=== PATIENT | female | born 1965 | race Caucasian/White ===

== ENCOUNTER 2017-07-29 17:59 | Observation (INO) | payer OTHER ==
[2017-07-29 18:17] VITALS: BMI 28.5
[2017-07-29] MEDS ORDERED: Sodium Chloride 0.9% 1,000 ML IV ONE (19:13)
[2017-07-29] MEDS ORDERED: Iohexol 240 (50 ml) PO STA (19:13)
[2017-07-29] MEDS ORDERED: Iohexol 240 (50 ml) ONE (19:31)
[2017-07-29 19:34] LABS: BASO # 0.1 K/uL (0.0-0.2); BASO % 0.5 % (0.0-2.0); EOS # 0.1 K/uL (0.0-0.7); EOS % 0.3 % (0.0-4.0); HEMATOCRIT 48.3 % (34.0-47.0); LYMPH # 1.2 K/uL (1.0-4.3); LYMPH % 5.9 % (20.0-40.0); MEAN CELL VOLUME 86.7 fL (81.0-99.0); MEAN CORPUSCULAR HEMOGLOBIN 29.3 pg (27.0-31.0); MEAN CORPUSCULAR HGB CONC 33.7 g/dL (33.0-37.0); MEAN PLATELET VOLUME 10.9 fL (7.2-11.7); MONO # 1.5 K/uL (0.0-0.8); MONO % 7.7 % (0.0-10.0); NRBC % 0.1 % (0.0-2.0); PLATELET COUNT 292 K/uL (130-400); RED CELL DISTRIBUTION WIDTH 13.2 % (11.5-14.5); WHITE BLOOD COUNT 19.6 K/uL (4.8-10.8)
[2017-07-29 19:40] LABS: CHLORIDE 94 mmol/L (98-107)
[2017-07-29 19:41] LABS: POTASSIUM 3.7 mmol/L (3.6-5.2); SODIUM 131 mmol/L (132-148)
[2017-07-29 19:43] LABS: ALB/GLOB RATIO 1.1 (1.0-2.1); ALKALINE PHOSPHATASE 104 U/L (38-126); AST/SGOT 22 U/L (14-36); BILIRUBIN,TOTAL 1.3 mg/dL (0.2-1.3); BLOOD UREA NITROGEN 19 mg/dL (7-17); CARBON DIOXIDE 25 mmol/L (22-30); GFR AFRICAN-AMERICAN > 60; TOTAL PROTEIN 8.4 g/dL (6.3-8.3)
[2017-07-29 19:44] LABS: ALT/SGPT 25 U/L (9-52); CALCIUM 8.9 mg/dl (8.6-10.4); GLUCOSE,RANDOM 105 mg/dL (65-105)
[2017-07-29 20:06] LABS: NEUTROPHIL 87 % (50-75); TOTAL CELLS COUNTED 100
[2017-07-29 20:07] LABS: LARGE PLATELETS PRESENT
[2017-07-29 20:11] LABS: RBC URINE 3 /hpf (0-3); TRANSITIONAL EPITHIAL < 1 /hpf (0-3); URINE BACTERIA FEW (<OCC); URINE BILIRUBIN NEGATIVE (NEGATIVE); URINE BLOOD NEGATIVE (NEGATIVE); URINE COLOR Amber (YELLOW); URINE GLUCOSE (UA) NORMAL (Normal); URINE KETONE TRACE mg/dL (NEGATIVE); URINE PROTEIN 1+ mg/dL (NEGATIVE); WBC URINE 16 /hpf (0-5)
[2017-07-29 20:13] LABS: URINE LEUKOCYTE ESTERASE 1+ Leu/uL (Negative)
[2017-07-29] MEDS ORDERED: Iodixanol 320 MG/ML 100 ML BOTTLE IV ONE (20:35)
--- NOTE | 2017-07-29 22:03 | CT ---
EXAM: CT Abdomen and Pelvis With Intravenous Contrast CLINICAL HISTORY: 52 years old, female; Pain; Abdominal pain; Localized; Left; Additional info: Left-sided abdominal pain TECHNIQUE: Axial computed tomography images of the abdomen and pelvis with intravenous contrast. All CT scans at this facility use one or more dose reduction techniques, viz.: automated exposure control; ma/kV adjustment per patient size (including targeted exams where dose is matched to indication; i.e. head); or iterative reconstruction technique. Coronal and sagittal reformatted images were created and reviewed. CONTRAST: 100 mL of visipaque 320 administered intravenously. COMPARISON: No relevant prior studies available. FINDINGS: Lower thorax: Mild atelectasis/scarring. Trace to small bilateral pleural effusions. ABDOMEN: Liver: Unremarkable. No mass. Gallbladder and bile ducts: No calcified stones. No ductal dilation. Pancreas: Moderate stranding/fluid about pancreas. No definite pancreatic necrosis. No discrete peripancreatic collection. Spleen: No splenomegaly. Adrenals: No mass. Kidneys and ureters: Mild stranding about LEFT kidney. No hydronephrosis. Stomach and bowel: No definite mural thickening. No obstruction. Appendix: Normal caliber. No inflammation. PELVIS: Bladder: Unremarkable. Reproductive: Unremarkable as visualized. ABDOMEN and PELVIS: Intraperitoneal space: Small free fluid within pelvis. No free air. Bones/joints: Chronic RIGHT L5 pars defect. No acute fracture. Soft tissues: Unremarkable. Vasculature: Patent splenic artery and vein. Prominent vessels within LEFT hemipelvis. Apparent focal narrowing of proximal celiac axis. No aneurysm. Lymph nodes: No pathologically enlarged lymph nodes. IMPRESSION: 1. Acute pancreatitis. 2. Incidental/non-acute findings are described above.
--- NOTE | 2017-07-29 23:33 | CP.PCM.HP ---
<BrijeshGayleJerman - Last Filed: 07/30/17 03:13> History of Present Illness - History of Present Illness History of Present Illness: CC: "Stomach Pain" HPI: 52 year old female presents to the ED with abdominal pain that started 2 days ago. Patient stated she also had one episode of vomiting 2 days ago. Patient points to the pain in the mid-epigastric region and states it radiates to her back. Patient rates the pain as 7/10 currently. Patient states she is not nauseous now. Patient states she did vomited to days ago with the abdominal pain. Patient stated she was able to eat some apple sauce earlier today but has not had much of an appetite for 2 days. Patient stated this has never happened before. Patient denies chest pain, shortness of breath, diarrhea, hematachezia, dysuria, hematuria, weight changes, dizziness, syncope, or weakness. Past Medical History: brain aneurysm Past Surgical History: aneurysm coil wire repair 3 yrs ago Medications: Aspirin 81mg, Vitamin D 1000 units Allergies: denied Social History: Patient lives with her son. Patient works at a [employer] currently. Patient denies smoking or illicit drug use. Patient states she drinks 1/2 beer once a week. Family History : mother of [place] at age 56 y/o Present on Admission - Present on Admission Any Indicators Present on Admission: No Review of Systems - Constitutional Constitutional: absent: Chills - EENT Eyes: absent: Blurred Vision - Cardiovascular Cardiovascular: absent: Chest Pain, Dyspnea, Palpitations, Pedal Edema - Respiratory Respiratory: absent: Dyspnea - Gastrointestinal Gastrointestinal: Abdominal Pain. absent: Constipation, Diarrhea, Nausea, Vomiting - Genitourinary Genitourinary: absent: Dysuria - Musculoskeletal Musculoskeletal: absent: Back Pain, Neck Pain, Numbness - Neurological Neurological: absent: Dizziness, Numbness, Headaches, Tingling - Endocrine Endocrine: absent: Fatigue, Palpitations Past Patient History - Past Social History Smoking Status: Never Smoked - NEUROLOGICAL Other/Comment: brain aneurysm - PSYCHIATRIC Hx Substance Use: No - SURGICAL HISTORY Other/Comment: titainium coil in brain Meds Allergies/Adverse Reactions: Allergies Allergy/AdvReac Type Severity Reaction Status Date / Time No Known Allergies Allergy Verified 07/29/17 18:15 Physical Exam - Constitutional Appears: No Acute Distress - Head Exam Head Exam: ATRAUMATIC, NORMAL INSPECTION, NORMOCEPHALIC - Eye Exam Eye Exam: EOMI, Normal appearance, PERRL Pupil Exam: NORMAL ACCOMODATION - ENT Exam ENT Exam: Mucous Membranes Moist - Cardiovascular Exam Cardiovascular Exam: REGULAR RHYTHM, +S1, +S2. absent: JVD - GI/Abdominal Exam GI & Abdominal Exam: Normal Bowel Sounds, Soft, Tenderness. absent: Guarding, Rebound - Extremities Exam Extremities exam: Positive for: normal inspection. Negative for: pedal edema, tenderness - Neurological Exam Neurological exam: Alert, CN II-XII Intact, Oriented x3 - Expanded Neurological Exam Expanded Patient oriented to: person, place, time Sensory exam: Lower Extremity Light Touch: Normal, Upper Extremity Light Touch: Normal Neuro motor strength exam: Left Upper Extremity: 5, Right Upper Extremity: 5, Left Lower Extremity: 5, Right Lower Extremity: 5 Coma Scale Eye Opening: SPONTANEOUS Coma Scale Motor Response: OBEYS COMMANDS - Psychiatric Exam Psychiatric exam: Normal Affect, Normal Mood - Skin Skin Exam: Normal Color, Warm Results - Vital Signs Recent Vital Signs: Last Vital Signs Temp 99.1 F 07/29/17 23:20 Pulse 94 H 07/29/17 23:20 Resp 18 07/29/17 23:20 BP 127/79 07/29/17 23:20 Pulse Ox 97 07/29/17 23:20 - Labs Result Diagrams: 07/29/17 19:26 07/29/17 19:26 Labs: Laboratory Results - last 24 hr 07/29/17 07/29/17 07/29/17 19:26 19:26 19:44 WBC 19.6 H RBC 5.57 H Hgb 16.3 H Hct 48.3 H MCV 86.7 MCH 29.3 MCHC 33.7 RDW 13.2 Plt Count 292 MPV 10.9 Neut % (Auto) 85.6 H Lymph % (Auto) 5.9 L [place] % (Auto) 7.7 Eos % (Auto) 0.3 Baso % (Auto) 0.5 Neut # 16.8 H Lymph # 1.2 [place] # 1.5 H Eos # 0.1 Baso # 0.1 Neutrophils % (Manual) 87 H Lymphocytes % (Manual) 6 L Monocytes % (Manual) 7 Platelet Estimate Normal Large Platelets Present RBC Morphology Normal Sodium 131 L Potassium 3.7 Chloride 94 L Carbon Dioxide 25 Anion Gap 17 BUN 19 H Creatinine 0.7 Est GFR ( Amer) > 60 Est GFR (Non-Af Amer) > 60 Random Glucose 105 Calcium 8.9 Total Bilirubin 1.3 AST 22 ALT 25 Alkaline Phosphatase 104 Total Protein 8.4 H Albumin 4.5 Globulin 3.9 Albumin/Globulin Ratio 1.1 Lipase 148 Urine Color [place] Urine Clarity Hazy Urine pH 5.0 Ur Specific [place] 1.031 H Urine Protein 1+ H Urine Glucose (UA) Normal Urine Ketones Trace Urine Blood Negative Urine Nitrate Negative Urine Bilirubin Negative Urine Urobilinogen 2.0 H Ur Leukocyte Esterase 1+ H Urine WBC (Auto) 16 H Urine RBC (Auto) 3 Ur Squamous Epith Cells 18 H Ur Transition Epith Cell < 1 Urine Bacteria Few H Assessment & Plan - Assessment and Plan (Free Text) Assessment: 1.) Pancreatitis - Abdomen/Pelvis CT: 1. Acute pancreatitis. 2. Incidental/non-acute findings are described above - f/u abdominal US to r/o pancreatic duct stone - Lipase: 148 - WBC: 19.6 - NPO - NS @150cc/hr - f/u lipid panel - Motrin PRN for pain 2.) History of brain aneurysm - Aspirin 81mg daily 3.) Prophylaxis - Pepcid 20mg daily - Heparin SC - SCDs Case discussed with Dr. Gloria Coley PGY-1 <Ernesto Castro - Last Filed: 07/30/17 04:17> Results - Vital Signs Recent Vital Signs: Last Vital Signs Temp 98.5 F 07/30/17 00:00 Pulse 94 H 07/30/17 00:03 Resp 18 07/30/17 00:03 BP 119/71 07/30/17 00:00 Pulse Ox 97 07/30/17 00:17 - Labs Result Diagrams: 07/29/17 19:26 07/29/17 19:26 Labs: Laboratory Results - last 24 hr 07/29/17 07/29/17 07/29/17 19:26 19:26 19:44 WBC 19.6 H RBC 5.57 H Hgb 16.3 H Hct 48.3 H MCV 86.7 MCH 29.3 MCHC 33.7 RDW 13.2 Plt Count 292 MPV 10.9 Neut % (Auto) 85.6 H Lymph % (Auto) 5.9 L [place] % (Auto) 7.7 Eos % (Auto) 0.3 Baso % (Auto) 0.5 Neut # 16.8 H Lymph # 1.2 [place] # 1.5 H Eos # 0.1 Baso # 0.1 Neutrophils % (Manual) 87 H Lymphocytes % (Manual) 6 L Monocytes % (Manual) 7 Platelet Estimate Normal Large Platelets Present RBC Morphology Normal Sodium 131 L Potassium 3.7 Chloride 94 L Carbon Dioxide 25 Anion Gap 17 BUN 19 H Creatinine 0.7 Est GFR ( Amer) > 60 Est GFR (Non-Af Amer) > 60 Random Glucose 105 Calcium 8.9 Total Bilirubin 1.3 AST 22 ALT 25 Alkaline Phosphatase 104 Total Protein 8.4 H Albumin 4.5 Globulin 3.9 Albumin/Globulin Ratio 1.1 Lipase 148 Urine Color [place] Urine Clarity Hazy Urine pH 5.0 Ur Specific [place] 1.031 H Urine Protein 1+ H Urine Glucose (UA) Normal Urine Ketones Trace Urine Blood Negative Urine Nitrate Negative Urine Bilirubin Negative Urine Urobilinogen 2.0 H Ur Leukocyte Esterase 1+ H Urine WBC (Auto) 16 H Urine RBC (Auto) 3 Ur Squamous Epith Cells 18 H Ur Transition Epith Cell < 1 Urine Bacteria Few H Assessment & Plan - Date & Time Date: 07/30/17 (I have seen and examined the patient. I agree with the findings and plan of care as documented by Dr. Coley. Patient with acute pancreatitis. Symptomatic treatment. NPO. IVF. Advance diet as tolerated in AM. Check abdominal US. Check FLP. Monitor for acute changes.) Time: 04:16 Attending/Attestation - Attestation I have personally seen and examined this patient.: Yes I have fully participated in the care of the patient.: Yes I have reviewed all pertinent clinical information: Yes
[2017-07-30] MEDS: Sodium Chloride 0.9% 1,000 ML IV SCH ×2 (00:11→06:44)
--- NOTE | 2017-07-30 00:17 | C.PDOC ---
History Of Present Illness 52 y/o female presents to ED with complaints of abdominal pain for 3 days with associated nausea. Patient states she went to see PMD for same symptoms and was advised she come to ED for further evaluation. Patient denies vomiting, fever, dysuria, blood in stool or any other complaints at this time. Chief Complaint (Nursing): Abdominal Pain History Per: Patient History/Exam Limitations: no limitations Onset/Duration Of Symptoms: Days Current Symptoms Are (Timing): Still Present Location Of Pain/Discomfort: Epigastric Radiation Of Pain To:: None Quality Of Discomfort: "Pain" Associated Symptoms: Nausea Past Medical History Reviewed: Historical Data, Nursing Documentation, Vital Signs Vital Signs: Last Vital Signs Temp 98.5 F 07/30/17 00:00 Pulse 94 H 07/30/17 00:03 Resp 18 07/30/17 00:03 BP 119/71 07/30/17 00:00 Pulse Ox 97 07/30/17 00:17 - Medical History PMH: No Chronic Diseases Surgical History: No Surg Hx Family History: States: No Known Family Hx - Social History Hx Alcohol Use: No Hx Substance Use: No - Immunization History Hx Tetanus Toxoid Vaccination: No Hx Influenza Vaccination: No Hx Pneumococcal Vaccination: No Review Of Systems Constitutional: Negative for: Fever, Chills Gastrointestinal: Positive for: Nausea, Abdominal Pain. Negative for: Vomiting , Diarrhea Genitourinary: Negative for: Dysuria, Hematuria Musculoskeletal: Negative for: Back Pain Skin: Negative for: Rash Physical Exam - Physical Exam Appears: Non-toxic, No Acute Distress Skin: Normal Color, Warm, Dry, No Rash Head: Atraumatic, Normacephalic Oral Mucosa: Moist Neck: Normal ROM, Supple Cardiovascular: Rhythm Regular Respiratory: Normal Breath Sounds, No Rales, No Rhonchi, No Wheezing Gastrointestinal/Abdominal: Soft, Tenderness (Epigastric and mid abdominal), No Guarding, No Rebound Back: No CVA Tenderness Neurological/Psych: Oriented x3 ED Course And Treatment - Laboratory Results Result Diagrams: 07/29/17 19:26 07/29/17 19:26 O2 Sat by Pulse Oximetry: 97 (RA) Pulse Ox Interpretation: Normal Medical Decision Making Medical Decision Making: Spoke with Dr. Castro and reviewed case, accepted patient to his service Disposition - Disposition Disposition: HOSPITALIZED Disposition Time: 22:05 Condition: STABLE - Clinical Impression Clinical Impression: Pancreatitis - Scribe Statement The provider has reviewed the documentation as recorded by the Cameronibe Alina Vazquez All medical record entries made by the Cameronibe were at my direction and personally dictated by me. I have reviewed the chart and agree that the record accurately reflects my personal performance of the history, physical exam, medical decision making, and the department course for this patient. I have also personally directed, reviewed, and agree with the discharge instructions and disposition.
[2017-07-30 07:42] VITALS: RESP 20
[2017-07-30 08:23] LABS: BASO # 0.1 K/uL (0.0-0.2); BASO % 0.5 % (0.0-2.0); CHLORIDE 100 mmol/L (98-107); EOS # 0.2 K/uL (0.0-0.7); HEMATOCRIT 37.4 % (34.0-47.0); LYMPH # 0.9 K/uL (1.0-4.3); LYMPH % 5.4 % (20.0-40.0); MEAN CELL VOLUME 87.2 fL (81.0-99.0); MEAN CORPUSCULAR HEMOGLOBIN 29.8 pg (27.0-31.0); MEAN CORPUSCULAR HGB CONC 34.1 g/dL (33.0-37.0); MEAN PLATELET VOLUME 10.5 fL (7.2-11.7); MONO # 1.2 K/uL (0.0-0.8); MONO % 7.7 % (0.0-10.0); PLATELET COUNT 195 K/uL (130-400); RED CELL DISTRIBUTION WIDTH 13.1 % (11.5-14.5); WHITE BLOOD COUNT 15.9 K/uL (4.8-10.8)
[2017-07-30 08:24] LABS: POTASSIUM 3.9 mmol/L (3.6-5.2); SODIUM 133 mmol/L (132-148)
[2017-07-30 08:25] LABS: GFR AFRICAN-AMERICAN > 60
[2017-07-30 08:26] LABS: ALB/GLOB RATIO 1.2 (1.0-2.1); ALKALINE PHOSPHATASE 89 U/L (38-126); ALT/SGPT 24 U/L (9-52); AST/SGOT 22 U/L (14-36); BILIRUBIN,TOTAL 1.2 mg/dL (0.2-1.3); BLOOD UREA NITROGEN 14 mg/dL (7-17); CARBON DIOXIDE 24 mmol/L (22-30); GLUCOSE,RANDOM 84 mg/dL (65-105)
[2017-07-30 08:27] LABS: CALCIUM 7.5 mg/dl (8.6-10.4); MAGNESIUM 1.9 mg/dL (1.6-2.3); PHOSPHOROUS 2.7 mg/dL (2.5-4.5)
--- NOTE | 2017-07-30 09:57 | US ---
HISTORY: r/o pancreatic duct stone COMPARISON: CT abdomen and pelvis with contrast performed 07/29/17 TECHNIQUE: Sonographic evaluation of the abdomen. FINDINGS: LIVER: Measures 15.0 cm in sagittal dimension. Multiple small echogenic lesions are noted within the right hepatic lobe spanning approximately 3.0 x 1.3 x 3.1 cm. The main portal vein appears patent with normal directional flow. No intrahepatic bile duct dilatation. GALLBLADDER: No gallstones. No gallbladder wall thickening. Negative sonographic Rodriguez's sign as assessed by the electronics tester. COMMON BILE DUCT: Measures 4 mm. PANCREAS: Not well visualized. RIGHT KIDNEY: Measures 10.8 x 4.4 x 5.1 cmcm. No obstructing calculus or hydronephrosis identified. LEFT KIDNEY: Measures 11.3 x 5.4 x 6.1cm. No obstructing calculus or hydronephrosis identified. SPLEEN: Measures approximately 9.1 cm. AORTA: Limited views appear unremarkable. IVC: Limited views appear unremarkable. OTHER FINDINGS: Bilateral pleural effusions. IMPRESSION: Multiple small echogenic lesions are noted within the right hepatic lobe spanning approximately 3.0 x 1.3 x 3.1 cm. Recommend dedicated liver CT for further characterization if indicated. Bilateral pleural effusions. Please note that pancreatic duct stone cannot be excluded by ultrasound.
[2017-07-30 10:27] LABS: NEUTROPHIL 91 % (50-75); TOTAL CELLS COUNTED 100
[2017-07-30 10:45] LABS: CHOLESTEROL 161 mg/dL (0-199)
[2017-07-30] MEDS: Lactated Ringer's 1,000 ML IV SCH ×3 (11:00→23:50)
--- NOTE | 2017-07-30 12:29 | CP.PCM.PN ---
Addendum entered and electronically signed by Izabel Espinal DO 07/30/17 13: 08: GI Consulted (Dr. Mayfield) - recs appreciated Original Note: <Izabel Espinal - Last Filed: 07/30/17 12:33> Subjective - Date & Time of Evaluation Date of Evaluation: 07/30/17 Time of Evaluation: 12:19 - Subjective Subjective: Medicine note for Dr. Guillen Patient seen and examined at bedside. Patient resting comfortably in bed with no new complaints at this time. Patient says she is feeling better than when she arrived. When questioned about alcohol use, given her diagnosis of pancreatitis, patient says she rarely drinks and never binges. Her is sitting at bedside and confirms this. Patient says she does have a history of high cholesterol but does not think her triglycerides were very elevated last time. Patient denies fever, chills, nausea, vomiting as of this morning, diarrhea, constipation, leg pain, and leg swelling. Objective - Vital Signs/Intake and Output Vital Signs (last 24 hours): Temp Pulse Resp BP Pulse Ox 98.6 F 95 H 20 117/72 96 07/30/17 07:39 07/30/17 07:39 07/30/17 07:39 07/30/17 07:39 07/30/17 07:39 Intake and Output: 07/30/17 07/30/17 06:59 18:59 Intake Total 1200 Output Total 0 Balance 1200 - Medications Medications: Current Medications Aspirin (Ecotrin) 81 mg PO DAILY [facility] Famotidine (Pepcid) 20 mg IVP DAILY [facility] Heparin Sodium (Porcine) (Heparin) 5,000 units SC Q8 [facility] Last Admin: 07/30/17 06:45 Dose: 5,000 units Lactated Ringer's (Lactated Ringer's) 1,000 mls @ 150 mls/hr IV .[id number] [facility] Stop: 07/31/17 17:00 Pneumococcal Polyvalent Vaccine (Pneumovax 23 Vaccine) 0.5 ml IM .ONCE ONE Stop: 08/01/17 10:01 - Labs Labs: 07/30/17 08:01 07/30/17 08:01 - Constitutional Appears: Non-toxic, No Acute Distress - Head Exam Head Exam: NORMAL INSPECTION - Eye Exam Eye Exam: EOMI - ENT Exam ENT Exam: Mucous Membranes Moist - Respiratory Exam Respiratory Exam: NORMAL BREATHING PATTERN. absent: Accessory Muscle Use, Rales , Rhonchi, Wheezes - Cardiovascular Exam Cardiovascular Exam: REGULAR RHYTHM, +S1, +S2. absent: Bradycardia, Tachycardia , Murmur - GI/Abdominal Exam GI & Abdominal Exam: Soft, Tenderness, Normal Bowel Sounds. absent: Distended - Extremities Exam Extremities Exam: Normal Inspection. absent: Calf Tenderness, Pedal Edema - Neurological Exam Neurological Exam: Alert, Awake - Psychiatric Exam Psychiatric exam: Normal Affect, Normal Mood - Skin Skin Exam: Dry, Intact, Normal Color, Warm Assessment and Plan - Assessment and Plan (Free Text) Plan: Pancreatitis - Abdomen/Pelvis CT: 1. Acute pancreatitis. 2. Incidental/non-acute findings are described above - abdominal US: Multiple small echogenic lesions are noted within the right hepatic lobe spanning approximately 3.0 x 1.3 x 3.1 cm. Recommend dedicated liver CT for further characterization if indicated. Bilateral pleural effusions. Please note that pancreatic duct stone cannot be excluded by ultrasound. - Lipase: 148 - WBC: 19.6 - NPO - Lactated ringers @150cc/hr - lipid panel: Trig 55, Chol 161, LDL 92, HDL 48 - f/u LDH for characterization with [place]'s criteria * Age < 55 +0 * WBC > 16k (19.6k) +1 * Glucose < 200 (105) +0 * AST < 250 (22) +0 * f/u LDH +? History of brain aneurysm - Aspirin 81mg daily Prophylaxis - Pepcid 20mg daily - Heparin SC - SCDs Discussed with Dr. Wilmer Espinal, PGY1 <Sandy Guillen V - Last Filed: 07/31/17 16:07> Objective - Vital Signs/Intake and Output Vital Signs (last 24 hours): Temp Pulse Resp BP Pulse Ox 98.4 F 99 H 20 127/79 95 07/31/17 00:00 07/31/17 00:00 07/31/17 00:00 07/31/17 00:00 07/31/17 00:00 Intake and Output: 07/31/17 07/31/17 06:59 18:59 Intake Total 2850 Balance 2850 - Labs Labs: 07/31/17 09:31 07/31/17 09:31 Attending/Attestation - Attestation I have personally seen and examined this patient.: Yes I have fully participated in the care of the patient.: Yes I have reviewed all pertinent clinical information, including history, physical exam and plan: Yes Notes (Text): This is late computer entry for 07/30/17. Patient seen, examined, and case discussed with day-time resident. Patient seen in the morning with boyfriend at bedside. Patient allows us to discuss her medical information in front of her boyfriend. Patient reports since Wednesday, she has been having generalized abdominal pain, which was so bad which prompted her to come to the hospital overnight. Patient reports she sparingly drinks alcohol, no known hx of gallstones, and has a history of elevated cholerstrol. Patient completed CT scan at time of admission showing acute pancreatitis. Patient completed Abdominal US to exclude gallstones. Patient denies hx of HIV nor HIV medications, vaccination is uptodate. GI consult; initially there was confusion given conversation if GI was consulted on admission or not, following conversation with Dr. Tobias/Dr Grijalva supervisor operations on admission, there was no GI consulted nor placed on admission in the EMR. Subsequently, GI supervisor operations for Wednesday, was consulted. Help very appreciated. Patient has a history of brain aneurysm with coil which she reports is MRI safe , and has required to be on daily Aspirin as prophylactic. GI consult NPO Lipid panel panel pending; discussed with nurse to see if collected on admission Abdominal US ordered this morning. Patient is a [place]'s Criteria of 1 (unless LDH is above 350 which would make 2) : associated with 1 percent mortality. on IV fluids Assessment/Plan 1) Acute Pancreatitis * On general medical Floor * NPO * IV fluids * Abdomen/Pelvis CT: 1. Acute pancreatitis. 2. Incidental/non-acute findings are described above * Abdominal US: Multiple small echogenic lesions are noted within the right hepatic lobe spanning approximately 3.0 x 1.3 x 3.1 cm. Recommend dedicated liver CT for further characterization if indicated. Bilateral pleural effusions. Please note that pancreatic duct stone cannot be excluded by ultrasound. * [place]'s criteria: 1 * Age < 55 +0 * WBC > 16k (19.6k) +1 * Glucose < 200 (105) +0 * AST < 250 (22) +0 * f/u LDH +? * Note: suspected H/H drop is dilutional since patient is on IV fluids * Lactated ringers @150cc/hr * Lipid panel: Trig 55, Chol 161, LDL 92, HDL 48 * GI supervisor operations (Dr. Mayfield's group)-->help appreciated; f/u recommendations 2) History of brain aneurysm s/p coil * Aspirin 81mg daily as prophylaxis 3 )Prophylaxis * Pepcid 20mg daily * Heparin 5000 units SC 8H * SCDs b/l
--- NOTE | 2017-07-30 14:43 | CP.PCM.CON ---
History of Present Illness - History of Present Illness History of Present Illness: Asked by hospitalist team for a GI consultation on this patient. 52 year old female with prior history of brain aneurysm who presents to hospital with complaint of progressive abdominal pain. Symptoms started 3 days ago following lunch where she ate noodles and eggplant, prior to this she was in usual state of health. She describes a sudden onset 5/10 intensity epigastric abdominal pain radiating to back and was associated with one episode of non-bloody emesis. The pain persisted over the next 2 days and she came to hospital for further evaluation. She has not had any recurrent vomiting and denies fever/ chills, weight loss, rectal bleeding, recent travel, sick contacts, NSAID use, OTC herbal use, or similar prior episodes. No prior endoscopic evaluation. Social history: non-smoker, social ETOH use Family history: reviewed, no family history of colon cancer Review of Systems - Review of Systems Review of Systems: - All other 12 point review of systems performed, negative - Cardiovascular Cardiovascular: absent: Acrocyanosis, Chest Pain, Chest Pain at Rest, Chest Pain with Activity, Claudication, Diaphoresis, Dyspnea, Dyspnea on Exertion, Edema, Irregular Heart Rhythm, Pain Radiating to Arm/Neck/Jaw, Leg Edema, Leg Ulcers, Lightheadedness, Orthopnea, Palpitations, Paroxysmal Nocturnal Dyspnea, Pedal Edema, Radiating Pain, Rapid Heart Rate, Slow Heart Rate, Syncope, Other - Respiratory Respiratory: absent: Cough, Dyspnea, Hemoptysis, Dyspnea on Exertion, Wheezing, Snoring, Stridor, Pain on Inspiration, Chest Congestion, Excessive Mucous Production, Change in Mucous Color, Pain with Coughing, Other - Gastrointestinal Gastrointestinal: Abdominal Pain, Nausea - Musculoskeletal Musculoskeletal: absent: Abnormal Gait, Arthralgias, Atrophy, Back Pain, Deformity, Joint Swelling, Limited Range of Motion, Loss of Height, Muscle Cramps, Muscle Weakness, Myalgias, Neck Pain, Numbness, Radiating Pain into Limb , Stiffness, Tingling, Other - Neurological Neurological: absent: Abnormal Gait, Abnormal Hearing, Abnormal Movements, Abnormal Speech, Behavioral Changes, Burning Sensations, Confusion, Convulsions , Disequilibrium, Dizziness, Numbness, Focal Weakness, Frequent Falls, Headaches , Lack of Coordination, Loss of Vision, Memory Loss, Paresthesias, Radicular Pain, Restless Legs, Sensory Deficit, Syncope, Tingling, Tremor, Vertigo, Weakness, Other Visual Disturbances, Other Past Patient History - Past Medical History & Family History Past Medical History?: Yes - Past Social History Smoking Status: Never Smoked - CARDIAC Hx Cardiac Disorders: No - PULMONARY Hx Respiratory Disorders: No - NEUROLOGICAL Other/Comment: brain aneurysm - HEENT Hx HEENT Problems: No - RENAL Hx Chronic Kidney Disease: No - ENDOCRINE/METABOLIC Hx Endocrine Disorders: No - HEMATOLOGICAL/ONCOLOGICAL Hx Blood Disorders: No - INTEGUMENTARY Hx Dermatological Problems: No - MUSCULOSKELETAL/RHEUMATOLOGICAL Hx Musculoskeletal Disorders: No Hx Falls: No - GASTROINTESTINAL Hx Gastrointestinal Disorders: No - GENITOURINARY/GYNECOLOGICAL Hx Genitourinary Disorders: No - PSYCHIATRIC Hx Substance Use: No - SURGICAL HISTORY Other/Comment: titainium coil in brain - ANESTHESIA Hx Anesthesia: Yes Hx Anesthesia Reactions: No Hx Malignant Hyperthermia: No Has any member of the family had a problem w/ anesthesia?: No Meds Allergies/Adverse Reactions: Allergies Allergy/AdvReac Type Severity Reaction Status Date / Time No Known Allergies Allergy Verified 07/29/17 18:15 - Medications Medications: Current Medications Aspirin (Ecotrin) 81 mg PO DAILY [facility] Last Admin: 07/30/17 10:00 Dose: Not Given Heparin Sodium (Porcine) (Heparin) 5,000 units SC Q8 [facility] Last Admin: 07/30/17 06:45 Dose: 5,000 units Lactated Ringer's (Lactated Ringer's) 1,000 mls @ 150 mls/hr IV .Q6H40M [facility] Stop: 07/31/17 17:00 Last Admin: 07/30/17 11:00 Dose: 150 mls/hr Pantoprazole Sodium (Protonix Ec Tab) 40 mg PO DAILY [facility] Pneumococcal Polyvalent Vaccine (Pneumovax 23 Vaccine) 0.5 ml IM .ONCE ONE Stop: 08/01/17 10:01 Physical Exam - Constitutional Appears: Non-toxic, No Acute Distress - Head Exam Head Exam: NORMAL INSPECTION - Eye Exam Eye Exam: EOMI, Normal appearance - ENT Exam ENT Exam: Mucous Membranes Moist - Respiratory Exam Respiratory Exam: Clear to Auscultation Bilateral - Cardiovascular Exam Cardiovascular Exam: REGULAR RHYTHM, +S1, +S2 - GI/Abdominal Exam GI & Abdominal Exam: Normal Bowel Sounds, Soft, Tenderness Additional comments: mild epigastric tenderness to palpation, no rebound/guarding no palpable hepatosplenomegaly - Extremities Exam Extremities exam: Positive for: normal inspection - Neurological Exam Neurological exam: Alert, CN II-XII Intact, Oriented x3, Reflexes Normal - Psychiatric Exam Psychiatric exam: Normal Affect, Normal Mood - Skin Skin Exam: Dry, Intact, Normal Color, Warm Results - Vital Signs Recent Vital Signs: Last Vital Signs Temp 98.6 F 07/30/17 07:39 Pulse 95 H 07/30/17 07:39 Resp 20 07/30/17 07:39 BP 117/72 07/30/17 07:39 Pulse Ox 96 07/30/17 07:39 - Labs Result Diagrams: 07/30/17 08:01 07/30/17 08:01 Labs: Laboratory Results - last 24 hr 07/29/17 07/29/17 07/29/17 19:26 19:26 19:44 WBC 19.6 H RBC 5.57 H Hgb 16.3 H Hct 48.3 H MCV 86.7 MCH 29.3 MCHC 33.7 RDW 13.2 Plt Count 292 MPV 10.9 Neut % (Auto) 85.6 H Lymph % (Auto) 5.9 L [place] % (Auto) 7.7 Eos % (Auto) 0.3 Baso % (Auto) 0.5 Neut # 16.8 H Lymph # 1.2 [place] # 1.5 H Eos # 0.1 Baso # 0.1 Neutrophils % (Manual) 87 H Lymphocytes % (Manual) 6 L Monocytes % (Manual) 7 Platelet Estimate Normal Large Platelets Present RBC Morphology Normal Sodium 131 L Potassium 3.7 Chloride 94 L Carbon Dioxide 25 Anion Gap 17 BUN 19 H Creatinine 0.7 Est GFR ( Amer) > 60 Est GFR (Non-Af Amer) > 60 Random Glucose 105 Calcium 8.9 Phosphorus Magnesium Total Bilirubin 1.3 AST 22 ALT 25 Alkaline Phosphatase 104 Lactate Dehydrogenase Total Protein 8.4 H Albumin 4.5 Globulin 3.9 Albumin/Globulin Ratio 1.1 Triglycerides Cholesterol LDL Cholesterol Direct HDL Cholesterol Lipase 148 Urine Color Farzana Urine Clarity Hazy Urine pH 5.0 Ur Specific [place] 1.031 H Urine Protein 1+ H Urine Glucose (UA) Normal Urine Ketones Trace Urine Blood Negative Urine Nitrate Negative Urine Bilirubin Negative Urine Urobilinogen 2.0 H Ur Leukocyte Esterase 1+ H Urine WBC (Auto) 16 H Urine RBC (Auto) 3 Ur Squamous Epith Cells 18 H Ur Transition Epith Cell < 1 Urine Bacteria Few H Urine HCG, Qual 07/30/17 07/30/17 07/30/17 08:01 08:01 09:42 WBC 15.9 H RBC 4.29 Hgb 12.8 D Hct 37.4 MCV 87.2 MCH 29.8 MCHC 34.1 RDW 13.1 Plt Count 195 MPV 10.5 Neut % (Auto) 85.4 H Lymph % (Auto) 5.4 L [place] % (Auto) 7.7 Eos % (Auto) 1.0 Baso % (Auto) 0.5 Neut # 13.6 H Lymph # 0.9 L [place] # 1.2 H Eos # 0.2 Baso # 0.1 Neutrophils % (Manual) 91 H Lymphocytes % (Manual) 6 L Monocytes % (Manual) 3 Platelet Estimate Normal Large Platelets RBC Morphology Normal Sodium 133 Potassium 3.9 Chloride 100 Carbon Dioxide 24 Anion Gap 12 BUN 14 Creatinine 0.6 L Est GFR ( Amer) > 60 Est GFR (Non-Af Amer) > 60 Random Glucose 84 Calcium 7.5 L Phosphorus 2.7 Magnesium 1.9 Total Bilirubin 1.2 AST 22 ALT 24 Alkaline Phosphatase 89 Lactate Dehydrogenase 403 Total Protein 6.0 L Albumin 3.3 L D Globulin 2.7 Albumin/Globulin Ratio 1.2 Triglycerides 55 D Cholesterol 161 LDL Cholesterol Direct 92 HDL Cholesterol 48 Lipase Urine Color Urine Clarity Urine pH Ur Specific [place] Urine Protein Urine Glucose (UA) Urine Ketones Urine Blood Urine Nitrate Urine Bilirubin Urine Urobilinogen Ur Leukocyte Esterase Urine WBC (Auto) Urine RBC (Auto) Ur Squamous Epith Cells Ur Transition Epith Cell Urine Bacteria Urine HCG, Qual Negative Assessment & Plan - Assessment and Plan (Free Text) Assessment: History of brain aneurysm Sudden onset abdominal pain - acute pancreatitis Abdominal US reviewed showing no gallstones, multiple echogenic hepatic lesions in R lobe, normal caliber CBD CT abdomen reviewed showing mild natasha-pancreatic inflammation consistent with acute pancreatitis, no focal fluid collection Plan: - Advance to full liquid diet as tolerated - Etiology for acute pancreatitis unclear, non significant ETOH consumption, no presence of gallstones, lipid panel normal. Resolving gastroenteritis is also a possible explanation for acute presentation. - Obtain autoimmune IgG4 panel - Begin once daily oral PPI therapy - Continue with IVF hydration and supportive care - Obtain dedicated liver CT given echogenic liver lesions seen on US, obtain viral hepatitis panel - Patient would benefit from elective outpatient EGD and colonoscopy following resolution of acute issues. Office contact information provided to patient. Will continue to monitor patient clinical course.
[2017-07-30] MEDS: Pantoprazole 40 mg EC Tab PO SCH (14:45)
[2017-07-30] MEDS ORDERED: Iodixanol 320 MG/ML 100 ML BOTTLE IV ONE (16:06)
--- NOTE | 2017-07-30 17:52 | CT ---
PROCEDURE: CT Abdomen with and without intravenous contrast HISTORY: liver lesions on US COMPARISON: 07/29/2017 TECHNIQUE: Axial images of the abdomen from lung bases to iliac crest with and without intravenous contrast enhancement. Postcontrast images were acquired in both the hepatic arterial and portal venous phases of enhancement. Coronal and sagittal reformats generated. Oral contrast also administered. Intravenous contrast Dose: 100 mL Visipaque 320 Radiation dose: Total exam DLP = 1864.81 mGy-cm. This CT exam was performed using one or more of the following dose reduction techniques: Automated exposure control, adjustment of the mA and/or kV according to patient size, and/or use of iterative reconstruction technique. FINDINGS: LOWER THORAX: Small bilateral pleural effusion and bilateral lower lobe compressive atelectasis. LIVER: Normal size, contour and attenuation. Heterogeneous ill-defined low-attenuation in the medial segment of the left hepatic lobe adjacent to the fissure for the ligamentum venosum. This most likely represents focal fatty infiltration. This may correspond to the area of heterogeneous echogenicity seen on ultrasound examination of 07/30. However, correspondence is not clear as the fissure is not evident on the ultrasound examination. There is no mass otherwise identified. No abnormal enhancement is appreciated. GALLBLADDER AND BILE DUCTS: Unremarkable. PANCREAS: Peripancreatic fluid/edema essentially unchanged from prior CT examination, consistent with acute pancreatitis. No pancreatic mass. No evidence of pancreatic necrosis. No pancreatic ductal dilatation. SPLEEN: Unremarkable. ADRENALS: Unremarkable. No mass. KIDNEYS AND URETERS: Unremarkable. No hydronephrosis. No solid mass. VASCULATURE: Unremarkable. No aortic aneurysm. BOWEL: Unremarkable. No obstruction. No gross mural thickening. APPENDIX: Not included PERITONEUM: Trace ascites in pericolic gutters LYMPH NODES: Unremarkable. No enlarged lymph nodes. Bones No acute fracture. OTHER FINDINGS: None. IMPRESSION: Findings consistent with acute pancreatitis. Bilateral small pleural effusion and compressive atelectasis. No evidence of pancreatic necrosis, pancreatic mass or pancreatic ductal dilatation. Ill-defined heterogeneous low-attenuation in the medial segment of the left hepatic lobe as described. This may correspond to the heterogeneous echogenicity identified on ultrasound examination but the correspondence is not definitely demonstrated. Finding on CT is consistent with focal fatty infiltration. Follow-up with ultrasound is advised. Flow in the prone
[2017-07-31 00:35] VITALS: BP 127/79; PULSE 99; TEMP 98.4; O2SAT 95
[2017-07-31] MEDS: Lactated Ringer's 1,000 ML IV SCH ×2 (02:53→09:52)
--- NOTE | 2017-07-31 08:56 | CP.PCM.PN ---
<Maribel Mora - Last Filed: 07/31/17 14:33> Subjective - Date & Time of Evaluation Date of Evaluation: 07/31/17 Time of Evaluation: 08:52 - Subjective Subjective: Gastroenterology Fellow/PGY5 Progress Note Patient notes resolved abdominal pain. Tolerating low fat diet. No bowel movement since Wednesday. A 12-point review of systems negative except for as above. Objective - Vital Signs/Intake and Output Vital Signs (last 24 hours): Temp Pulse Resp BP Pulse Ox 98.4 F 99 H 20 127/79 95 07/31/17 00:00 07/31/17 00:00 07/31/17 00:00 07/31/17 00:00 07/31/17 00:00 Intake and Output: 07/31/17 07/31/17 06:59 18:59 Intake Total 2850 Balance 2850 - Medications Medications: Current Medications Aspirin (Ecotrin) 81 mg PO DAILY [facility] Last Admin: 07/30/17 10:00 Dose: Not Given Heparin Sodium (Porcine) (Heparin) 5,000 units SC Q8 [facility] Last Admin: 07/31/17 06:15 Dose: 5,000 units Lactated Ringer's (Lactated Ringer's) 1,000 mls @ 150 mls/hr IV .Q6H40M [facility] Stop: 07/31/17 17:00 Last Admin: 07/31/17 02:53 Dose: 150 mls/hr Morphine Sulfate (Morphine) 1 mg IVP Q4 PRN PRN Reason: Pain, moderate (4-7) Last Admin: 07/30/17 21:03 Dose: 1 mg Pantoprazole Sodium (Protonix Ec Tab) 40 mg PO DAILY [facility] Last Admin: 07/30/17 14:45 Dose: 40 mg Pneumococcal Polyvalent Vaccine (Pneumovax 23 Vaccine) 0.5 ml IM .ONCE ONE Stop: 08/01/17 10:01 - Labs Labs: 07/30/17 08:01 07/30/17 08:01 - Constitutional Appears: Non-toxic, No Acute Distress - Head Exam Head Exam: ATRAUMATIC, NORMOCEPHALIC - Eye Exam Eye Exam: EOMI, PERRL Pupil Exam: PERRL. absent: Miosis, Mydriatic - ENT Exam ENT Exam: Mucous Membranes Moist, Normal Oropharynx - Neck Exam Neck Exam: Full ROM, Normal Inspection - Respiratory Exam Respiratory Exam: Clear to Ausculation Bilateral. absent: Rales, Rhonchi, Wheezes - Cardiovascular Exam Cardiovascular Exam: Tachycardia, +S1, +S2. absent: Gallop, Rubs - GI/Abdominal Exam GI & Abdominal Exam: Soft, Normal Bowel Sounds. absent: Distended, Firm, Guarding, Rigid, Tenderness, Organomegaly, Rebound Additional comments: epigastric tenderness - Extremities Exam Extremities Exam: Normal Inspection - Neurological Exam Neurological Exam: Alert, Awake - Psychiatric Exam Psychiatric exam: Normal Affect, Normal Mood - Skin Skin Exam: Dry, Intact, Normal Color, Warm Assessment and Plan - Assessment and Plan (Free Text) Assessment: 52 year old female with history of Brain aneurysm s/p repair presenting with abdominal pain. Active treatment of acute pancreatitis, unclear etiology. No prior EGD/colonoscopy. Plan: >low fat diet >gentle IVFs >no gallstones, ETOH use, normal TGs >pending IgG4 >continue PPI ACB >CT liver protocol-no hepatic lesions noted- likely fatty deposition at ligamentum venosum >Miralax daily >elective outpatient EGD/colonoscopy with Dr. Mayfield >Okay to discharge from GI standpoint. Thank you for opportunity to participate in the car of this patient. <Kenyon May MD - Last Filed: 07/31/17 15:03> Objective - Vital Signs/Intake and Output Vital Signs (last 24 hours): Temp Pulse Resp BP Pulse Ox 98.4 F 99 H 20 127/79 95 07/31/17 00:00 07/31/17 00:00 07/31/17 00:00 07/31/17 00:00 07/31/17 00:00 Intake and Output: 07/31/17 07/31/17 06:59 18:59 Intake Total 2850 Balance 2850 - Labs Labs: 07/31/17 09:31 07/31/17 09:31 Attending/Attestation - Attestation I have personally seen and examined this patient.: Yes I have fully participated in the care of the patient.: Yes I have reviewed all pertinent clinical information, including history, physical exam and plan: Yes Notes (Text): 07/31/17 15:00 Patinet seen with GI fellow on rounds. This is a 52 yr old F with history of brain aneurysm presenting with uncomplicated pancreatitis on Ct scan and clinical features. Lipase WNL. Pain resolving. Able to tolerate regular diet. Abdominal US reviewed showing no gallstones, multiple echogenic hepatic lesions in R lobe, normal caliber CBD. Etiology for acute pancreatitis unclear, non significant ETOH consumption, no presence of gallstones, lipid panel normal. IgG 4 pending. Patient would benefit from elective outpatient EGD and colonoscopy following resolution of acute issues. Office contact information provided to patient for Dr Mayfield. Can be discharged to home with outpatient follow up. Thank you for letting us participate in the care of this patient
[2017-07-31 09:39] LABS: BASO % 0.3 % (0.0-2.0); EOS # 0.2 K/uL (0.0-0.7); EOS % 1.4 % (0.0-4.0); HEMATOCRIT 38.7 % (34.0-47.0); LYMPH # 0.9 K/uL (1.0-4.3); LYMPH % 7.8 % (20.0-40.0); MEAN CELL VOLUME 87.6 fL (81.0-99.0); MEAN CORPUSCULAR HEMOGLOBIN 29.3 pg (27.0-31.0); MEAN CORPUSCULAR HGB CONC 33.4 g/dL (33.0-37.0); MEAN PLATELET VOLUME 10.5 fL (7.2-11.7); MONO # 0.7 K/uL (0.0-0.8); MONO % 5.8 % (0.0-10.0); NRBC % 0.4 % (0.0-2.0); PLATELET COUNT 234 K/uL (130-400); WHITE BLOOD COUNT 11.6 K/uL (4.8-10.8)
[2017-07-31 09:47] LABS: CHLORIDE 97 mmol/L (98-107); POTASSIUM 3.8 mmol/L (3.6-5.2); SODIUM 133 mmol/L (132-148)
[2017-07-31 09:49] LABS: ALB/GLOB RATIO 0.9 (1.0-2.1); ALKALINE PHOSPHATASE 166 U/L (38-126); AST/SGOT 27 U/L (14-36); CARBON DIOXIDE 26 mmol/L (22-30); GFR AFRICAN-AMERICAN > 60; TOTAL PROTEIN 7.9 g/dL (6.3-8.3)
[2017-07-31 09:50] LABS: ALT/SGPT 38 U/L (9-52); BLOOD UREA NITROGEN 8 mg/dL (7-17); CALCIUM 8.5 mg/dl (8.6-10.4); GLUCOSE,RANDOM 91 mg/dL (65-105); MAGNESIUM 1.8 mg/dL (1.6-2.3)
[2017-07-31] MEDS: Pantoprazole 40 mg EC Tab PO SCH (09:52)
[2017-07-31 11:40] LABS: NEUTROPHIL 89 % (50-75); TOTAL CELLS COUNTED 100
[2017-07-31 11:41] LABS: LARGE PLATELETS PRESENT
[2017-07-31] MEDS ORDERED: POLYETHYLENE GLYCOL 3350 17 GM/Dose PACKET PO SCH (14:45)
--- NOTE | 2017-07-31 20:01 | CP.PCM.DIS ---
Provider - Provider Date of Admission: 07/29/17 22:20 Attending physician: Ernesto Castro MD Primary care physician: Dr. So Consults: Dr. Mayfield Time Spent in preparation of Discharge (in minutes): 45 Hospital Course - Lab Results Lab Results: Micro Results 07/29/17 20:39 Urine Urine Culture - Final 10-50,000 CFU/ML. MULTIPLE SPECIES. PROBABLE CONTAMINATION. Most Recent Lab Values WBC 11.6 K/uL (4.8-10.8) H 07/31/17 09:31 RBC 4.42 Mil/uL (3.80-5.20) 07/31/17 09:31 Hgb 13.0 g/dL (11.0-16.0) 07/31/17 09:31 Hct 38.7 % (34.0-47.0) 07/31/17 09:31 MCV 87.6 fL (81.0-99.0) 07/31/17 09:31 MCH 29.3 pg (27.0-31.0) 07/31/17 09:31 MCHC 33.4 g/dL (33.0-37.0) 07/31/17 09:31 RDW 13.0 % (11.5-14.5) 07/31/17 09:31 Plt Count 234 K/uL (130-400) 07/31/17 09:31 MPV 10.5 fL (7.2-11.7) 07/31/17 09:31 Neut % (Auto) 84.7 % (50.0-75.0) H 07/31/17 09:31 Lymph % (Auto) 7.8 % (20.0-40.0) L 07/31/17 09:31 [place] % (Auto) 5.8 % (0.0-10.0) 07/31/17 09:31 Eos % (Auto) 1.4 % (0.0-4.0) 07/31/17 09:31 Baso % (Auto) 0.3 % (0.0-2.0) 07/31/17 09:31 Neut # 9.8 K/uL (1.8-7.0) H 07/31/17 09:31 Lymph # 0.9 K/uL (1.0-4.3) L 07/31/17 09:31 [place] # 0.7 K/uL (0.0-0.8) 07/31/17 09:31 Eos # 0.2 K/uL (0.0-0.7) 07/31/17 09:31 Baso # 0.0 K/uL (0.0-0.2) 07/31/17 09:31 Neutrophils % (Manual) 89 % (50-75) H 07/31/17 09:31 Lymphocytes % (Manual) 8 % (20-40) L 07/31/17 09:31 Monocytes % (Manual) 3 % (0-10) 07/31/17 09:31 Platelet Estimate Normal (NORMAL) 07/31/17 09:31 Large Platelets Present 07/31/17 09:31 RBC Morphology Normal 07/31/17 09:31 Sodium 133 mmol/L (132-148) 07/31/17 09:31 Potassium 3.8 mmol/L (3.6-5.2) 07/31/17 09:31 Chloride 97 mmol/L (98-107) L 07/31/17 09:31 Carbon Dioxide 26 mmol/L (22-30) 07/31/17 09:31 Anion Gap 14 (10-20) 07/31/17 09:31 BUN 8 mg/dL (7-17) 07/31/17 09:31 Creatinine 0.4 mg/dL (0.7-1.2) L 07/31/17 09:31 Est GFR ( Amer) > 60 07/31/17 09:31 Est GFR (Non-Af Amer) > 60 07/31/17 09:31 Random Glucose 91 mg/dL (65-105) 07/31/17 09:31 Calcium 8.5 mg/dl (8.6-10.4) L 07/31/17 09:31 Phosphorus 3.0 mg/dL (2.5-4.5) 07/31/17 09:31 Magnesium 1.8 mg/dL (1.6-2.3) 07/31/17 09:31 Total Bilirubin 1.0 mg/dL (0.2-1.3) 07/31/17 09:31 AST 27 U/L (14-36) 07/31/17 09:31 ALT 38 U/L (9-52) 10/28/17 09:31 Alkaline Phosphatase 166 U/L (38-126) H D 07/31/17 09:31 Lactate Dehydrogenase 403 U/L (313-618) 07/30/17 08:01 Total Protein 7.9 g/dL (6.3-8.3) 07/31/17 09:31 Albumin 3.7 g/dL (3.5-5.0) 07/31/17 09:31 Globulin 4.2 gm/dL (2.2-3.9) H 07/31/17 09:31 Albumin/Globulin Ratio 0.9 (1.0-2.1) L 07/31/17 09:31 Triglycerides 55 mg/dL (0-149) D 07/30/17 08:01 Cholesterol 161 mg/dL (0-199) 07/30/17 08:01 LDL Cholesterol Direct 92 mg/dL (0-129) 07/30/17 08:01 HDL Cholesterol 48 mg/dL (30-70) 07/30/17 08:01 Lipase 148 U/L (23-300) 07/29/17 19:26 Urine Color Farzana (YELLOW) 07/29/17 19:44 Urine Clarity Hazy (Clear) 07/29/17 19:44 Urine pH 5.0 (5.0-8.0) 07/29/17 19:44 Ur Specific [place] 1.031 (1.003-1.030) H 07/29/17 19:44 Urine Protein 1+ mg/dL (NEGATIVE) H 07/29/17 19:44 Urine Glucose (UA) Normal mg/dL (Normal) 07/29/17 19:44 Urine Ketones Trace mg/dL (NEGATIVE) 07/29/17 19:44 Urine Blood Negative (NEGATIVE) 07/29/17 19:44 Urine Nitrate Negative (NEGATIVE) 07/29/17 19:44 Urine Bilirubin Negative (NEGATIVE) 07/29/17 19:44 Urine Urobilinogen 2.0 mg/dL (0.2-1.0) H 07/29/17 19:44 Ur Leukocyte Esterase 1+ Kristina/uL (Negative) H 07/29/17 19:44 Urine WBC (Auto) 16 /hpf (0-5) H 07/29/17 19:44 Urine RBC (Auto) 3 /hpf (0-3) 07/29/17 19:44 Ur Squamous Epith Cells 18 /hpf (0-5) H 07/29/17 19:44 Ur Transition Epith Cell < 1 /hpf (0-3) 07/29/17 19:44 Urine Bacteria Few (<OCC) H 07/29/17 19:44 Urine HCG, Qual Negative (NEGATIVE) 07/30/17 09:42 Hepatitis A IgM Ab Negative (NEGATIVE) 07/30/17 16:50 Hep Bs Antigen Negative (NEGATIVE) 07/30/17 16:50 Hep B Core IgM Ab Negative (NEGATIVE) 07/30/17 16:50 Hepatitis C Antibody Negative (NEGATIVE) 07/30/17 16:50 - Hospital Course Hospital Course: Initial History: 52 year old female presents to the ED with abdominal pain that started 2 days ago. Patient stated she also had one episode of vomiting 2 days ago. Patient points to the pain in the mid-epigastric region and states it radiates to her back. Patient rates the pain as 7/10 currently. Patient states she is not nauseous now. Patient states she did vomited to days ago with the abdominal pain. Patient stated she was able to eat some apple sauce earlier today but has not had much of an appetite for 2 days. Patient stated this has never happened before. Patient denies chest pain, shortness of breath, diarrhea, hematachezia, dysuria, hematuria, weight changes, dizziness, syncope, or weakness. Hospital course: Patient was sent over here for abdominal pain, she at a CT scan which showed pacreatitis. GI was consulted. Patient was treated with IV fluids and kept NPO. She ultrasound and CT of liver as well. Could not preform MRI due to coil in her brain from a anuerysm. Labs showed her lipase was wnl. She had a white count but that was improving. Patient able to tolerate PO diet, having regular bowel movements and passing gas. Please EMR for all labs and imaging studies preformed. Discharge Instructions: Patient to be discharged home per Dr. Rodriguez. Patient will return to ED if symptoms return or worsen. Patient will need to follow up with her PMD next week for PMD. Patient will also need to follow up with GI either with Dr. Mayfield or other GI as outpatient. Patient needs to be on no fat diet as well. Discharge diagnosis pancreatitis abdominal pain Discharge Exam - Head Exam Head Exam: ATRAUMATIC, NORMOCEPHALIC - Eye Exam Eye Exam: Normal appearance - Respiratory Exam Respiratory Exam: Clear to PA & Lateral - Cardiovascular Exam Cardiovascular Exam: REGULAR RHYTHM - GI/Abdominal Exam GI & Abdominal Exam: Normal Bowel Sounds, Soft. absent: Guarding, Rebound - Neurological Exam Neurological exam: Alert - Skin Skin Exam: Dry, Intact Discharge Plan - Follow Up Plan Condition: FAIR Disposition: HOME/ ROUTINE Instructions: Pancreatitis (DC) Additional Instructions: Patient to be discharged home per Dr. Rodriguez. Patient will return to ED if symptoms return or worsen. Patient will need to follow up with her PMD next week for PMD. Patient will also need to follow up with GI either with Dr. Mayfield or other GI as outpatient. Patient needs to be on no fat diet as well. Referrals: Omid Mayfield MD [Staff Provider] -
[2017-08-01] MEDS ORDERED: Pneumococcal 23-Valent Vaccine IM ONE (10:00)
[2017-08-01] MEDS ORDERED: Influenza Vaccine 60 mcg/0.5 mL SYR (4YR UP) IM ONE (10:00)
== END 2017-07-31 14:46 | disposition home or self-care (01) ==
LOC: C.ER 17:59 → C.9E 22:20 → C.3T 23:14
PROVIDERS: ADMIT Family Medicine; ATTEND Family Medicine
DX: K85.90 Acute pancreatitis without necrosis or infection, unspecified (principal); J90 Pleural effusion, not elsewhere classified; Z86.79 Personal history of other diseases of the circulatory system; Z79.82 Long term (current) use of aspirin
CPT/HCPCS: 36415; 74170; 74177; 76700; 80053; 80061; 80074; 81001; 82787; 83615; 83690; 83735; 84100; 84703; 85025; 87086; 96374; 99285; G0378; J1644; J2270; J2405; J7040; J7120; Q9966; Q9967